=== PATIENT | male | born 1935 | race Caucasian/White ===

== ENCOUNTER 2018-05-17 21:37 | Inpatient (IN) | payer OTHER ==
--- NOTE | 2018-05-17 21:58 | EDPHY ---
H & P Stated Complaint: sHINGLES, SWELLING IN FACE Time Seen by Provider: 05/17/18 21:58 HPI/ROS: HPI CHIEF COMPLAINT: [ ] HISTORY OF PRESENT ILLNESS: [Need 4: Location, Duration, Severity, Quality, Context, Timing Modifying Factors, Associated S&S] Past Medical History: Past Surgical History: Social History: Family History: ROS REVIEW OF SYSTEMS: 10 Systems were reviewed and negative with the exception of the elements mentioned in the history of present illness. Exam Constitutional triage nursing summary reviewed, vital signs reviewed, awake/ alert. Eyes normal conjunctivae and sclera, EOMI, PERRLA. HENT normal inspection, atraumatic, moist mucus membranes, no epistaxis, neck supple/ no meningismus, no raccoon eyes. Respiratory clear to auscultation bilaterally, normal breath sounds, no respiratory distress, no wheezing. Cardiovascular rate normal, regular rhythm, no murmur, no edema, distal pulses normal. Gastrointestinal soft, non-tender, no rebound, no guarding, normal bowel sounds, no distension, no pulsatile mass. Genitourinary no CVA tenderness. Musculoskeletal no midline vertebral tenderness, full range of motion, no calf swelling, no tenderness of extremities, no meningismus, good pulses, neurovascularly intact. Skin pink, warm, & dry, no rash, skin atraumatic. Neurologic awake, alert and oriented x 3, AAOx3, moves all 4 extremities equally, motor intact, sensory intact, CN II-XII intact, normal cerebellar, normal vision, normal speech. Psychiatric normal mood/affect. Heme/Lymph/Immune no lymphadenopathy. Differential Diagnosis: Medical Decision Making: Re-evaluation: Source: Patient - Personal History Current Tetanus Diphtheria and Acellular Pertussis (TDAP): Yes - Medical/Surgical History Hx Asthma: No Hx Chronic Respiratory Disease: No Hx Diabetes: No Hx Cardiac Disease: No Hx Renal Disease: No Hx Cirrhosis: No Hx Alcoholism: No Hx HIV/AIDS: No Hx Splenectomy or Spleen Trauma: No Other PMH: htn/ kidney stones psoriasis spinal fx osteoporosis, SHINGLES - Social History Smoking Status: Never smoked Constitutional: Initial Vital Signs Temperature (C) 37.1 C 05/17/18 21:44 Heart Rate 125 H 05/17/18 21:44 Respiratory Rate 20 05/17/18 21:44 Blood Pressure 93/75 L 05/17/18 21:44 O2 Sat (%) 93 05/17/18 21:44 O2 Delivery Mode Room Air Allergies/Adverse Reactions: No Known Allergies Allergy (Unverified 05/17/18 21:44) Home Medications: Medication Instructions Recorded Amlodipine Besylate 05/16/18 Cephalexin [Keflex] 500 mg PO TID #21 cap 05/16/18 Valacyclovir HCl [Valtrex] 1,000 mg PO TID #21 tab 05/16/18 oxyCODONE/APAP 5/325 [Percocet 1 tab PO Q4H PRN #20 tab 05/16/18 5/325 (*)] Departure - Departure Referrals: Fiorella Navarrete, [facility] [Primary Care Provider] - As per Instructions
[2018-05-17] MEDS ORDERED: FLUORESCEIN SODIUM 1 MG STRIP OP ONE (22:12)
[2018-05-17] MEDS ORDERED: PROPARACAINE/FLUORESCEIN SOD 5 ML OPHT.BTL ONE (22:13)
[2018-05-17] MEDS ORDERED: methylPREDNISolone SOD SUCC 125 MG/2 ML VIAL IVP ONE (22:14)
[2018-05-17] MEDS ORDERED: HYDROmorphONE/DILAUDID 2 MG/ML INJ IVP ONE (22:14)
--- NOTE | 2018-05-17 22:24 | EDPHY ---
H & P Stated Complaint: sHINGLES, SWELLING IN FACE Time Seen by Provider: 05/17/18 21:58 HPI/ROS: CHIEF COMPLAINT: Shingles HISTORY OF PRESENT ILLNESS: Patient is an 83-year-old man who lives alone who comes back to the ER by ambulance complaining of pain in his face and swelling. He was seen here yesterday and was diagnosed with shingles. It covers his scalp and all 3 dermatomes of the 5th cranial nerve. It is unilateral. No involvement to the tip of his nose or ear or eye. He was started on valacyclovir and Percocet yesterday as well as Keflex for super infection. Today he followed up with his java tech lead who confirmed that it was shingles. Later this evening he and his son called the java tech lead back complaining of increased swelling around his eye and they recommended he come to the ER. No fevers. No nausea vomiting. Son states that he is concerned about the patient's ability to manage his pain and care for himself on at home. [place] and is concerned about taking his father that far away. Severity: Severe Modifying factors: None REVIEW OF SYSTEMS: Constitutional: denies: chills, fever, recent illness, recent injury EENTM: denies: blurred vision, double vision, nose congestion Respiratory: denies: cough, shortness of breath Cardiac: denies: chest pain, irregular heart rate, lightheadedness, palpitations Gastrointestinal/Abdominal: denies: abdominal pain, diarrhea, nausea, vomiting, blood streaked stools Genitourinary: denies: dysuria, frequency, hematuria, pain Musculoskeletal: denies: joint pain, muscle pain Skin: See HPI Neurological: denies: headache, numbness, paresthesia, tingling, dizziness, weakness Hematologic/Lymphatic: denies: blood clots, easy bleeding, easy bruising Immunologic/allergic: denies: HIV/AIDS, transplant 10 systems reviewed and negative except as noted EXAM: GENERAL: Well-appearing, well-nourished and in no acute distress. HEAD: Atraumatic, normocephalic. EYES: Pupils equal round and reactive to light, extraocular movements intact, sclera anicteric, conjunctiva are normal. Cornea stained with fluorescein, no dendritic lesions visible. ENT: Some involvement to the side of his nose but not to the tip of his nose. TMs normal, nares patent, oropharynx clear without exudates. Moist mucous membranes. He does have lesions on his year but not in the ear canal or tympanic membrane. NECK: Normal range of motion, supple without lymphadenopathy or JVD. LUNGS: Breath sounds clear to auscultation bilaterally and equal. No wheezes rales or rhonchi. HEART: Regular rate and rhythm without murmurs, rubs or gallops. ABDOMEN: Soft, nontender, normoactive bowel sounds. No guarding, no rebound. No masses appreciated. BACK: No CVA tenderness, no spinal tenderness, step-offs or deformities EXTREMITIES: Normal range of motion, no pitting or edema. No clubbing or cyanosis. NEUROLOGICAL: Cranial nerves II through XII grossly intact. Normal speech, normal gait. 5/5 strength, normal movement in all extremities, normal sensation , normal reflexes PSYCH: Normal mood, normal affect. SKIN: Significant lesions, vesicles an apparent superinfection as well as edema to the V1 V2 and V3 dermatomes as well as appears to be the C2 dermatome. Source: Patient Exam Limitations: No limitations - Personal History Current Tetanus Diphtheria and Acellular Pertussis (TDAP): Yes - Medical/Surgical History Hx Asthma: No Hx Chronic Respiratory Disease: No Hx Diabetes: No Hx Cardiac Disease: No Hx Renal Disease: No Hx Cirrhosis: No Hx Alcoholism: No Hx HIV/AIDS: No Hx Splenectomy or Spleen Trauma: No Other PMH: htn/ kidney stones psoriasis spinal fx osteoporosis, SHINGLES - Family History Significant Family History: No pertinent family hx - Social History Smoking Status: Never smoked Alcohol Use: Sober Drug Use: None Constitutional: Initial Vital Signs Temperature (C) 37.1 C 05/17/18 21:44 Heart Rate 125 H 05/17/18 21:44 Respiratory Rate 20 05/17/18 21:44 Blood Pressure 93/75 L 05/17/18 21:44 O2 Sat (%) 93 05/17/18 21:44 O2 Delivery Mode Room Air Allergies/Adverse Reactions: No Known Allergies Allergy (Unverified 05/17/18 21:44) Home Medications: Medication Instructions Recorded Amlodipine Besylate 05/16/18 Cephalexin [Keflex] 500 mg PO TID #21 cap 05/16/18 Valacyclovir HCl [Valtrex] 1,000 mg PO TID #21 tab 05/16/18 oxyCODONE/APAP 5/325 [Percocet 0.5 tab PO Q4H PRN 05/18/18 5/325 (*)] Medical Decision Making ED Course/Re-evaluation: Patient has a rather severe shingles outbreak to his 5th facial nerve and upper cervical dermatomes. He is on valacyclovir. I will add steroids. He has an empty stomach so I will give IV. I will also add IV pain control. I have spoke with Dr. Crow who will admit for pain control and possibly placement to rehab. Differential Diagnosis: Partial list of the Differential diagnosis considered include but were not limited to; shingles, cellulitis, ocular shingles and although unlikely based on the history and physical exam, I also considered encephalitis, burn. - Data Points Medications Given: Acetaminophen (Tylenol) 650 mg PO Q4HRS PRN PRN Reason: Pain, Mild/Fever, Can Take PO Stop: 11/13/18 23:23 Last Admin: 05/18/18 08:21 Dose: 650 mg Diphenhydramine HCl (Benadryl) 25 mg PO Q6HRS PRN PRN Reason: Itching Stop: 11/14/18 10:37 Last Admin: 05/18/18 11:46 Dose: 25 mg Finasteride (Proscar) 5 mg PO DAILY YORDAN Stop: 11/14/18 11:29 Last Admin: 05/18/18 11:46 Dose: 5 mg Sodium Chloride (Ns) 1,000 mls @ 100 mls/hr IV CONT YORDAN Stop: 11/13/18 23:29 Last Admin: 05/18/18 00:19 Dose: 1,000 mls Tamsulosin HCl (Flomax) 0.4 mg PO DAILY YORDAN Stop: 11/14/18 11:29 Last Admin: 05/18/18 11:46 Dose: 0.4 mg Discontinued Medications Cephalexin HCl (Keflex) 500 mg PO BID YORDAN PRN Reason: Protocol Stop: 06/17/18 08:59 Last Admin: 05/18/18 08:21 Dose: 500 mg Hydromorphone HCl (Dilaudid) 0.5 mg IVP EDNOW ONE Stop: 05/17/18 22:15 Last Admin: 05/17/18 22:28 Dose: 0.5 mg Acyclovir 630 mg/ Dextrose 112.6 mls @ 100 mls/hr IV Q8HRS [facility] Stop: 06/17/18 02:59 Last Admin: 05/18/18 07:41 Dose: Not Given Methylprednisolone Sodium Succinate (Solu-Medrol) 125 mg IVP EDNOW ONE Stop: 05/17/18 22:15 Last Admin: 05/17/18 22:28 Dose: 125 mg Methylprednisolone Sodium Succinate (Solu-Medrol) 60 mg IVP DAILY [facility] Stop: 11/14/18 08:59 Last Admin: 05/18/18 08:21 Dose: 60 mg Departure - Departure Disposition: [facility] Acute Clinical Impression: Shingles outbreak Qualifiers: Herpes zoster complications: with other complications Qualified Code(s): B02.8 - Zoster with other complications Condition: Fair
[2018-05-17] MEDS ORDERED: ONDANSETRON 4 MG/2 ML VIAL IVP PRN (23:24)
[2018-05-17] MEDS ORDERED: ONDANSETRON DISINTEGRATING 4 MG TAB PO PRN (23:24)
[2018-05-18] MEDS: NS 1,000 ML IV SCH ×2 (00:19→13:55)
--- NOTE | 2018-05-18 03:47 | PDGENHP ---
History and Physical - Chief Complaint Shingles on right face - History of Present Illness Source - Patient provides history is good historian. EMR reviewed and case discussed with accepting hospitalist. HPI-this is a pleasant 83-year-old gentleman with past medical history significant for HTN, kidney stones, psoriasis, vertebral fracture, osteoporosis who presents emergency department today with complaints of worsening right facial pain and swelling due to shingles. Patient reports symptoms started approximately 4 days ago. He was seen 2 days ago in the ED in with the diagnosis and started on antiviral therapy and a prescription for Keflex that did not get filled.. Patient subsequently had outpatient dermatology follow-up who also added on steroids. Patient reports that he has only had continued worsening symptoms including extension of his swelling over his right eyelid. He denies any ocular pain or visual changes. He denies any fevers chills or sweats. Patient reports that he has always cold. He denies any nausea vomiting no diarrhea no cough or shortness of breath. Patient with declined oral intake for the last several days. He has had increased debility and generalized weakness. Son is concerned that patient may require additional help as he currently lives alone on his own. History Information - Allergies/Home Medication List Allergies/Adverse Reactions: No Known Allergies Allergy (Unverified 05/17/18 21:44) Home Medications: Amlodipine Besylate 05/16/18 [Last Taken Unknown] I have personally reviewed and updated: family history, medical history, social history, surgical history - Past Medical History Additional medical history: shingles,. HTN. kidney stones. psoriasis. vertebral fracture. osteoporosis - Surgical History Additional surgical history: lithotripsy - Family History Additional family history: denies FHX CAD, DM, CVA - Social History Smoking Status: Never smoked Alcohol Use: None Drug Use: None Additional social history: Patient lives alone. COR - FULL Review of Systems Review of Systems: ROS: 10pt was reviewed & negative except for what was stated in HPI & below Constitutional: Reports: other (always feels cold). Denies: chills, fever EENMT: Reports: no symptoms Cardiac: Reports: no symptoms Respiratory: Reports: no symptoms Gastrointestinal: Reports: nausea. Denies: vomitting, abdominal pain, diarrhea Genitourinary: Reports: no symptoms Muscolosketal: Reports: no symptoms Skin: Reports: rash, other (pain in v1,2,3 distribution) Hematologic/Lymphatic: Reports: no symptoms Physical Exam Physical Exam: Selected Entries 05/17/18 21:44 Blood Pressure Automatic Method Heart Rate 125 H Respiratory 20 Rate O2 Sat (%) 93 Temperature (C) 37.1 C Blood Pressure 93/75 L Mean Arterial 81 Pressure (MAP) O2 Delivery Room Air Mode Temperature Oral Source Temp Pulse Resp BP Pulse Ox 36.8 C 102 H 18 132/78 H 95 05/17/18 23:29 05/17/18 23:29 05/17/18 23:29 05/17/18 23:29 05/17/18 23:29 O2 (L/minute) 2 Constitutional: no apparent distress, chronically ill appearing, uncomfortable, other (NAD. patient lays in bed awake. appears uncomfortable. ) Eyes: PERRL (decreased reactivity to light bilaterally but symmetric. ) Ears, Nose, Mouth, Throat: poor dentition, No moist mucous membranes (slightly tachy/dry) Cardiovascular: regular rate and rhythym, no murmur, rub, or gallop, edema ( trace) Peripheral Pulses: 2+: dorsalis-pedis (R), dorsalis-pedis (L) Respiratory: no respiratory distress, no rales or rhonchi, clear to auscultation , No respiratory distress Gastrointestinal: normoactive bowel sounds, soft, non-tender abdomen, no palpable masses, No distension Genitourinary: no bladder tenderness, No keys in urethra Skin: warm, rash (vesciular lesions right ear with surrounding erythema/edema. scabbed lesions lower face/chin/jaw right.) Musculoskeletal: generalized weakness, No joint tenderness, No pain with ROM Neurologic: AAOx3, sensation intact bilaterally, CN II-XII Intact, No weakness, No facial droop Psychiatric: interacting appropriately, not anxious, not encephalopathic, thought process linear, No poor insight, No poor judgement, No poor memory Lab Data & Imaging Review 05/18/18 04:14 05/18/18 04:14 Assessment & Plan Assessment: 83-year-old male with history of shingles to the right side of his face with complaints of intractable pain. Shingles outbreak (Acute) - patient noting some nausea upon arrival. had been placed on valcyclovir as outpatient. continue with acyclovir IV. Patient previously started on keflex for possible superimposed cellulitis. continue keflex as tolerated. Patien ton respiratory and contact precautions given open vesicles. No evidence of ocular involvement at this time. Acute pain 2/2 shingles - prn pain medications see med list. hyponatremia - suspect 2/2 hypovolemia. patient reports decreased oral intake x 4 days and appears dry. encourage po intake. supplemental IVF overnight. repeat bmp in AM. CKD stage 4 - appears to be baseline renal function benign essential HTN - BPs acceptable at this time. continue amlodipine when dosing can be verified. psoriasis - supportive care. FEN - IV as above. electrolyte monitoring and replacement prn. advance diet as tolerated. PPX - SCDs. heparin. COR - FULL. Dispo - Admit to observation status
[2018-05-18] MEDS: D5W IV SCH ×2 (04:10→07:41)
[2018-05-18] MEDS: ACYCLOVIR IV SCH ×2 (04:10→07:41)
[2018-05-18 04:20] LABS: PLATELET COUNT 186 10^3/uL (150-400)
[2018-05-18] MEDS: ACETAMINOPHEN 325 MG TAB PO PRN (08:21)
[2018-05-18] MEDS ORDERED: methylPREDNISolone SOD SUCC 125 MG/2 ML VIAL IVP SCH (09:00)
[2018-05-18] MEDS ORDERED: CEPHALEXIN 500 MG CAP PO SCH ×2 (09:00→16:00)
[2018-05-18] MEDS ORDERED: ENOXAPARIN 40 MG/0.4 ML SYR SC SCH (09:00)
--- NOTE | 2018-05-18 09:28 | ASMTCMCOM ---
CM Note CM Note Notes: Patient brought to ED by son in law for concerns over increasing facial swelling associated with active shingles. He has been admitted for aggressive treatment including steroids, IV antiviral and pain management. Per family they are concerned about his ability to live alone. CM to follow for needs. Plan: TBD Date Signed: 05/18/2018 09:27 AM Electronically Signed By:Lorena Gerardo RN
--- NOTE | 2018-05-18 09:38 | HOSPPROG ---
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 encephalopathy Subjective: Can't walk, oral intake improving though, no pain Objective: Vital Signs Temp Pulse Resp BP Pulse Ox 36.7 C 108 H 20 130/69 H 92 05/18/18 07:59 05/18/18 07:59 05/18/18 04:00 05/18/18 07:59 05/18/18 07:59 Laboratory Results 05/18/18 04:14 05/18/18 04:14 05/17/18 05/18/18 05/19/18 05:59 05:59 05:59 Output Total 250 Balance -250 Old chart reviewed, including Joy. No outpatient records. Has labs back in 2015 that shows creatine 3.0 suggest CKD - Physical Exam Constitutional: uncomfortable, unkempt Cardiovascular: tachycardia, No systolic murmur, No irregularly irregular, No edema Respiratory: no respiratory distress, no rales or rhonchi, clear to auscultation Gastrointestinal: normoactive bowel sounds, soft, non-tender abdomen, no palpable masses, other (possible bladder fullness) Skin: warm, no fluctuance, no induration, other (extensive shingles rash over face and right side of neck, crusting, surrouding erythema) Neurologic: AAOx3, sensation intact bilaterally Psychiatric: interacting appropriately, not anxious, not encephalopathic, thought process linear ICD10 Worksheet Patient Problems: Problems Problem Status Onset Shingles outbreak Acute
[2018-05-18] MEDS: FINASTERIDE 5 MG TAB PO SCH (11:46)
[2018-05-18] MEDS: TAMSULOSIN HCL 0.4 MG CAP PO SCH (11:46)
[2018-05-18] MEDS: diphenhydrAMINE 25 MG CAP PO PRN (11:46)
[2018-05-18] MEDS ORDERED: HEPARIN 5,000 UNIT/0.5 ML INJ SC SCH (14:00)
[2018-05-18] MEDS: DIPHENHYDRAMINE CREAM TP PRN (15:06)
[2018-05-18] MEDS ORDERED: HEPARIN 10,000 UNIT/10 ML MDV (1,000 UNIT/ML) IVP PRN (18:43)
[2018-05-18] MEDS ORDERED: HEPARIN/DEXTROSE 500 ML IV SCH (18:45)
[2018-05-18] MEDS ORDERED: DILTIAZEM 25 MG/5 ML VIAL IVP ONE ×2 (18:45→21:12)
--- NOTE | 2018-05-18 18:50 | HOSPPROG ---
Hospitalist Progress Note Assessment/Plan: Called by RN for new onset a-fib. Patient seen while eating - appears comfortable. Denies chest pain, SOB, edema. Denies history of any cardiac problems. Denies any history of bleeding problems including intracranial and GI. 132/82, HR 150s Conversant, eating dinner RRR, no MRG CTAB Impression: 1. New onset a-fib with RVR, CHADSVasc=3; BP normal currently 2. Shingles 3. Renal insufficiency Plan: 1. Transfer to PCU for tele monitoring 2. Dilt 5mg IV x 1, then dilt gtt 3. Trend troponins 4. Heparin gtt, no bolus 5. Echo tomorrow 35 mins CC time managing new onset a-fib with tachycardia Objective: Vital Signs Temp Pulse Resp BP Pulse Ox 36.4 C 88 18 133/74 H 92 05/18/18 11:59 05/18/18 16:00 05/18/18 11:59 05/18/18 11:59 05/18/18 16:00 Laboratory Results 05/18/18 04:14 05/18/18 04:14 05/17/18 05/18/18 05/19/18 05:59 05:59 05:59 Intake Total 500 Output Total 250 1100 Balance -250 -600 ICD10 Worksheet Patient Problems: Problems Problem Status Onset Shingles outbreak Acute
[2018-05-18 18:53] LABS: PLATELET COUNT 153 10^3/uL (150-400)
[2018-05-18 19:22] LABS: INR 1.16 (0.83-1.16)
[2018-05-18] MEDS: DILTIAZEM 125 MG in D5W 125 ML IV SCH (21:06)
[2018-05-18] MEDS: CEPHALEXIN 500 MG CAP PO SCH (21:19)
[2018-05-19] MEDS: DILTIAZEM 125 MG in D5W 125 ML IV SCH ×3 (05:37→23:24)
[2018-05-19] MEDS: D5W IV SCH (05:40)
[2018-05-19] MEDS: ACYCLOVIR IV SCH (05:40)
[2018-05-19 06:27] LABS: PLATELET COUNT 179 10^3/uL (150-400)
[2018-05-19] MEDS: FINASTERIDE 5 MG TAB PO SCH (08:46)
[2018-05-19] MEDS: CEPHALEXIN 500 MG CAP PO SCH (08:46)
[2018-05-19] MEDS: TAMSULOSIN HCL 0.4 MG CAP PO SCH (08:48)
[2018-05-19] MEDS ORDERED: predniSONE 20 MG TAB PO SCH (09:00)
[2018-05-19] MEDS: NS 1,000 ML IV SCH (09:21)
[2018-05-19] MEDS: DIPHENHYDRAMINE CREAM TP PRN ×2 (09:21→14:48)
[2018-05-19] MEDS ORDERED: LORazepam 0.5 MG TAB PO PRN (09:49)
[2018-05-19] MEDS ORDERED: OLANZapine 2.5 MG TAB PO PRN (09:50)
[2018-05-19] MEDS ORDERED: OLANZapine 2.5 MG TAB PO ONE (09:50)
--- NOTE | 2018-05-19 10:56 | ECHO ---
[email or web address] [address] [address] Main: [phone] Fax: Transthoracic Echocardiogram Name: CRISTOPHER MORENO MR#: [id number] Study Date: 05/19/2018 Study Time: 10:04 AM Date of : 1935 Age: 83 year(s) Height: 172.7 cm (68 in.) Weight: 63.5 kg (140 lb.) BSA: 1.76 m2 Gender: Male Examination: Echo Indication: a-fib Image Quality: Technically Difficult Contrast: Requested by: Benito Cooper BP: 90 mmHg/71 mmHg Heart Rate: Rhythm: Indication: a-fib Procedure Staff Clinical Assessment Manager: Vero Wright [facility] Reading Physician: Toan Middleton MD Requesting Provider: Conclusions: 1)Afib at 121bpm. 2)Normal LV size and systolic function with a LVEF of 63%. 3)Moderate concentric LVH noted. 4)Mild MR without MV prolapse. 5)Mild to moderate TR with estimated normal PA pressures. Measurements: Chambers Valvular Assessment AV/MV Valvular Assessment TV/PV Normal Normal Normal Name Value Range Name Value Range Name Value Range Ao Antonina (MM): 3.2 cm (2.2 cm-3.7 AV Vmax: 0.98 m/s (1 m/s-1.7 TR Vmax: 2.55 mm/s ( - ) cm) m/s) TR PGmax: 26 mmHg ( - ) IVSd (2D): 1.4 cm (0.6 cm-1.1 AV maxP mmHg ( - ) syst. PAP: 36 mmHg ( - ) cm) LVOT Vmax: 0.66 m/s (0.7 m/s-1.1 PV Vmax: 0.72 m/s (0.6 m/s-0.9 LVDd (2D): 3.1 cm (4.2 cm-5.9 m/s) m/s) cm) EHSAN (Vmax): 2.1 cm2 ( - ) PV PGmax: 2 mmHg ( - ) LVDs (2D): 2.3 cm (2.1 cm-4 MV E Vmax: 0.80 m/s ( - ) cm) LVPWd (2D): 1.1 cm (0.6 cm-1 cm) LVOTd 2.0 cm 2.0 cm mm LVEF (2D): 63 (>=54 %) Continued Measurements: Valvular Assessment TV/PV Name Value CVP (est.): 10 mmHg Patient: CRISTOPHER MORENO Study Date: 05/19/2018 Page 1 of 2 10:04 AM Additional Vessels Name Value Ao Ascendin.4 cm Findings: Left Ventricle: Normal size left ventricle. Mild concentric LV hypertrophy. Normal global systolic LV function. EF is 63 %. Cannot rule out wall motion abnormalities due to sub-optimal acoustical window. Unable to assess diastolic dysfunction. Right Ventricle: Grossly normal RV size and function. Left Atrium: Grossly normal LA size. Right Atrium: Grossly normal RA size. Mitral Valve: The mitral valve is normal in appearance and function. Mild mitral valve regurgitation is present. No mitral stenosis is present. Aortic Valve: The aortic valve is tri-leaflet and functions normally. Aortic sclerosis is present. No aortic valve stenosis is present. Tricuspid Valve: The tricuspid valve is normal in appearance and function. Mild to moderate tricuspid valve regurgitation. The pulmonary artery pressure is normal. Pulmonic Valve: Pulmonary valve not well visualized. Mild pulmonic valve regurgitation is noted. Aorta: Normal size aortic root measuring 3.2 cm. Normal size ascending aorta measuring 3.4 cm. IVC: The IVC is normal sized. There is less than 50% respiratory excursion. Pericardium: No pericardial effusion. (No Signature Object) Patient: CRISTOPHER MORENO Study Date: 05/19/2018 Page 2 of 2 10:04 AM [id number]
--- NOTE | 2018-05-19 11:29 | ASMTCMCOM ---
CM Note CM Note Notes: 05/19/2018 Case Management Note Met w/pt daughter Carolann (MDPOA) [phone] and [phone] (cell), Carolann's and pt daughter Cheryl Tidwell [phone] to discuss d/c needs. Pt lives at [facility] on [address] housing per family. Pt suffers from memory issues and lives independently in [place]. Provided senior blue book and [facility] Referrals to family. [facility] Case Management d/c poc: [facility] re[facility] Case Management to follow. Date Signed: 05/19/2018 11:28 AM Electronically Signed By:Marie Raygoza RN
--- NOTE | 2018-05-19 11:37 | CPEKG ---
Test Reason : OPEN Blood Pressure : / mmHG Vent. Rate : 172 BPM Atrial Rate : 178 BPM P-R Int : 116 ms QRS Dur : 098 ms QT Int : 301 ms P-R-T Axes : 270 108 -29 degrees QTc Int : 510 ms Atrial fibrillation with rapid V-rate Right axis deviation Repolarization abnormality, prob rate related Confirmed by Laquita Shelton ([id number]) on 05/19/2018 11:36:35 AM Referred By: Confirmed By:Laquita Shelton
--- NOTE | 2018-05-19 12:58 | GCON ---
CARDIOLOGY CONSULTATION DATE OF CONSULTATION: 05/19/2018 INDICATION FOR CONSULTATION: New onset of atrial fibrillation with rapid ventricular response. HISTORY OF PRESENT ILLNESS: Mr. Clayton is a pleasant 83-year-old gentleman with a past medical histo ry of hypertension, nephrolithiasis, psoriasis, history of vertebral fracture, and osteoporosis, who presented to the emergency department yesterday with worsening right facial pain with known recent hi story of shingles. He was seen in the ER 2 days prior and started on antiviral therapy and prescript ion for Keflex. He also was seen by outpatient Dermatology, who also started him on oral steroids. He was brought back to the emergency department by his family secondary to increased generalized weak ness. Last evening at approximately 6:45 p.m., he went into atrial fibrillation with rapid ventricular resp onse. He was seen by Dr. Cooper, who transferred him to the PCU for telemetry monitoring and was st arted on diltiazem drip as well as heparin drip without bolus. Mr. Clayton remains in suboptimally controlled atrial fibrillation with rapid ventricular response wit h a current heart rate of 130 beats per minute. His blood pressures have been on the low end of norm al range with previous readings of 111/82, 123/76, and most recently 90/71. Heart rate is as stated above 130, and atrial fibrillation. Mr. Clayton denies any previous history of atrial fibrillation. He has no known history of coronary d isease. He denies a history of sleep apnea. He has no history of alcohol use. No history of thyroi d disease. Of note, troponin last evening at 6:45 p.m. was 0.047, and has trended this morning to 0.175. He den ies complaints of chest pain, chest pressure, shortness of breath, or dyspnea. He denies any complai nts of PND, orthopnea, or lower extremity edema. He denies fevers, chills, sweats, nausea, or vomiti ng. He has no complaints of abdominal pain or flank pain. PAST MEDICAL HISTORY: As stated above. MEDICATIONS: Current medications include diltiazem drip at 15 mg/hour. He is on Rocephin 1 g IV elsie ly, acyclovir 630 mg q.24 hours, heparin drip. SOCIAL HISTORY: He lives alone at [facility]. He has children who live in the area, who are involv ed in his care. He is a lifelong nonsmoker. He does not drink alcohol. FAMILY HISTORY: No family history of atrial fibrillation or premature coronary artery disease. EXAM: VITAL SIGNS: Blood pressure is currently 90/71, heart rate of 130, in atrial fibrillation, ox ygen saturation 93% on 3 L nasal cannula, temperature 36.4. GENERAL: He is awake, alert, oriented, appropriate, in no apparent distress. NECK: There is no evidence of JVP. LUNGS: Clear to ausculta tion anteriorly. He does have evidence of healing blisters on the right side of his face and neck fr om shingles. CARDIAC: S1, S2. Irregularly, irregular. No murmurs, rubs, or gallops. ABDOMEN: So ft, nontender. EXTREMITIES: There is no evidence of cyanosis, clubbing or edema. Distal pulses are intact. DATA: Echocardiogram performed earlier today demonstrates normal left ventricular function with LVEF of 63%, moderate concentric LVH, mild MR without prolapse, and mild to moderate TR with normal pulmo nary artery pressures. Telemetry demonstrates atrial fibrillation with ongoing rapid ventricular response. Lab work: Sodium of 135, potassium 4.0, chloride 104, bicarb 18, BUN 56, creatinine 3, AST 47, ALT 4 7, troponin 0.047, trending to 0.175 at 6:00 a.m. this morning. White blood cell count 23.02, hemogl obin 14, hematocrit of 40, platelet count 179. IMPRESSION: 1. New onset atrial fibrillation with rapid ventricular response. 2. History of hypertension. 3. Mildly elevated troponin. 4. Shingles. 5. Generalized weakness. SUMMARY: Mr. Clayton presented with progressive fatigue in the setting of shingles outbreak. New ons et of atrial fibrillation with rapid ventricular response last evening. No previous history of atria l fibrillation. He can note an irregular heartbeat, but denies any complaints of chest pain, chest p ressure, shortness of breath, or dyspnea. No complaints of dizziness or lightheadedness or near sync ope. His troponins are mildly elevated, and I think this may be due to potential demand ischemia. He has no previous history of coronary disease. He will require further risk stratification once atrial fib rillation is better controlled. CHADS-VASc score of 3 based off age and history of hypertension. Remains on heparin drip. Recommend he continue heparin drip. Will reassess tomorrow. If he remains in suboptimally controlled atrial fibrillation with no room for further titration of beta florinda due to hypotension, would consider TE E guided cardioversion. Would recommend he remain n.p.o. after midnight. Would recommend checking T SH as well as serum magnesium. PLAN: 1. Add metoprolol tartrate 12.5 mg p.o. b.i.d. 2. Continue heparin drip. 3. Continue diltiazem drip at 50 mg/hour. 4. We will keep n.p.o. after midnight tonight. 5. We will consider ROSEMARY cardioversion tomorrow if patient remains in suboptimally controlled atrial fibrillation. 6. Will ultimately plan to switch patient to anticoagulation with Eliquis 2.5 mg p.o. b.i.d. 7. Patient will require further workup in the setting of mildly elevated troponin. In the absence o f chest pain, no indication for urgent left heart catheterization. /[id number]/MODL
[2018-05-19] MEDS: METOPROLOL TARTRATE 25 MG TAB PO SCH ×2 (12:59→20:49)
--- NOTE | 2018-05-19 15:27 | HOSPPROG ---
Hospitalist Progress Note Assessment/Plan: * Severe Herpes Zoster -IV acyclovir -stop steroids as swelling greatly improved and family concerned steroid increasing his agitation * Superimposed facial cellulitis, also possible UTI -IV ceftriaxone * Acute on chronic renal failure due to hypovolemia -at baseline creatinine 3.0 -needs outpatient nephrology follow-up * Urinary retention -initially large PVR but patient refused cath -Flomax/Proscar added -following bladder scans - last scan PVR 173ml * Toxic/metabolic encephalopathy - due to steroids/narcs/infection -according to family no confusion at baseline - this is all acute and his is off baseline * New onset afib -on IV dilt gtt + IV heparin -possible cardioversion in am if remains rapid afib * Troponin elevation -strain due to rapid afib -outpatient ischemic eval Subjective: very agitated and angry, confused, not baseline per family at bedside Objective: Vital Signs Temp Pulse Resp BP Pulse Ox 36.4 C 127 H 12 106/73 92 05/19/18 12:00 05/19/18 12:00 05/19/18 12:00 05/19/18 12:00 05/19/18 12:00 Laboratory Results 05/19/18 06:06 05/19/18 06:06 05/18/18 05/19/18 05/20/18 05:59 05:59 05:59 Intake Total 600 Output Total 250 1850 175 Balance -250 -1250 -175 PT 15.0 SEC (12.0-15.0) 05/18/18 18:55 INR 1.16 (0.83-1.16) 05/18/18 18:55 d/w Dr. Martin regarding cariology consultation tele reviewed - persistent rapid afib renal US - large PVR - Physical Exam Constitutional: no apparent distress, appears nourished, not in pain Cardiovascular: no murmur, rub, or gallop, irregularly irregular, tachycardia, No edema Gastrointestinal: normoactive bowel sounds, soft, non-tender abdomen, no palpable masses Skin: no rashes or abrasions, no fluctuance, no induration Neurologic: CN II-XII Intact, No weakness, No numbness Psychiatric: anxious, agitated, poor insight, poor judgement, No thought process linear ICD10 Worksheet Patient Problems: Problems Problem Status Onset Shingles outbreak Acute
--- NOTE | 2018-05-19 21:43 | PDMN ---
Medical Necessity Medical necessity: [facility] Systemic or Infectious condition: 83 yo w/ acute shingle outbreak, initially OBS but determined pt has severe herpes zoster w/ superimposed facial cellulitis. IV acyclovir, steroids and antibx started. Pt has persistent tachycardia, IVS to cont, pt very weak due to acute infection and dehydration, unable to ambulate, PT/OT ordered, pt is confused, unclear if dementia vs. encephalopathy. Change to IP status 05/18/18@0950 per MD order.
[2018-05-19] MEDS: HYDROmorphONE/DILAUDID 1 MG/ML INJ IVP PRN (23:23)
[2018-05-20] MEDS: HYDROmorphONE/DILAUDID 1 MG/ML INJ IVP PRN (05:29)
[2018-05-20] MEDS: D5W IV SCH (05:45)
[2018-05-20] MEDS: ACYCLOVIR IV SCH (05:45)
[2018-05-20 06:38] LABS: CREATINE KINASE 168 IU/L (0-224)
[2018-05-20] MEDS: FINASTERIDE 5 MG TAB PO SCH (08:30)
[2018-05-20] MEDS: METOPROLOL TARTRATE 25 MG TAB PO SCH ×3 (08:30→20:26)
[2018-05-20] MEDS: TAMSULOSIN HCL 0.4 MG CAP PO SCH (08:30)
[2018-05-20] MEDS: ACETAMINOPHEN 325 MG TAB PO PRN (08:35)
--- NOTE | 2018-05-20 11:30 | PDCARPN ---
Cardiology Progress Note Assessment/Plan: Assessment: 1. New onset of PAF (CHADS VASC of 3) 2. Mild troponin elevation peak of 0.175, now 0.099. Demand ischemia in setting of Afib with RVR. 3. Chronic renal insufficiency Plan: -Discontinue Diltiazem gtt -Discontinue heparin gtt -Increase Metoprolol Tartrate to 25 mg po bid -Recommend Eliquis 2.5 mg bid to start with PM dose today -Recommend out pt pharmacologic nuclear stress test in the setting of new afib and mild troponin elevation -Lipid profile for the morning 05/20/18 11:32 Subjective: Mr. Clayton admitted with generalized fatigue and shingles. He went into new onset PAF with RVR. He has converted back to NSR. Troponin peaked at 0.175 yesterday, has trended down steadily to 0.099 today. No chest pain. No sob. BNP 6790. No LE edema. BP stable. Reviewed/Discussed With: hospitalist Objective: Vital Signs (8 Hrs) Temp Pulse Resp BP Pulse Ox 05/20/18 10:42 36.2 C 93 18 128/70 H 90 L 05/20/18 08:00 36.3 C 94 18 127/83 H 90 L Intake/Output (24 Hrs) 05/19/18 05/20/18 05/21/18 05:59 05:59 05:59 Intake Total 600 3205.4 Output Total 1850 825 150 Balance -1250 2380.4 -150 Intake: Oral (ml) 600 513 IV Intake (ml) 50 IV Infused (ml) 2642.4 Acyclovir 630 mg In D5w 100 100 ml @ 100 mls/hr IV Q24H YORDAN Rx#:[id number] Diltiazem 125 mg In D5w 280 125 ml @ Per Protocol IV CONT YORDAN Rx#:[id number] Heparin/Dextrose 500 ml @ 312.4 Per Protocol IV CONT YORDAN Rx#:[id number] Ns 1,000 ml @ 100 mls/hr 1850 IV CONT YORDAN Rx#: [id number] cefTRIAXone 1 GM/DEXTROSE 100 50 ml @ 100 mls/hr IV DAILY YORDAN Rx#:[id number] Output: Urine (ml) 1850 825 150 Urinal 1850 825 150 Other: Weight 50.8 kg Intake Quantity Yes Yes Sufficient Output Comment Urinal used urinal after blader scan Number of Voids Urinal 1 1 1 Bladder Scan Volume (ml) Urinal 297 Post Void Residual Scan Volume (ml) Urinal 183 Result Diagrams: 05/20/18 05:48 05/20/18 05:48 Cardiac Labs: Cardiac Lab Results (72 Hrs) 05/20/18 05/19/18 05/19/18 05:48 18:46 12:30 Troponin I 0.099 H 0.134 H 0.169 H 05/19/18 05/18/18 06:06 18:45 Troponin I 0.175 H 0.047 H - Physical Exam Cardiovascular: regular rate and rhythm, no murmurs, no rubs, no gallops, other (NO LE edema ) Respiratory: clear to auscultate bilat Neurologic: AAOx3, CN II-XII grossly intact Psychiatric: cooperative, interactive, following commands ICD10 Worksheet Patient Problems: Problems Problem Status Onset Shingles outbreak Acute
--- NOTE | 2018-05-20 14:51 | HOSPPROG ---
Hospitalist Progress Note Assessment/Plan: * Severe Herpes Zoster -IV acyclovir -stop steroids as swelling greatly improved and family concerned steroid increasing his agitation * Superimposed facial cellulitis -IV ceftriaxone * Acute on chronic renal failure due to hypovolemia -at baseline creatinine 3.0 -needs outpatient nephrology follow-up * Urinary retention -initially large PVR but patient refused cath -Flomax/Proscar added -following bladder scans -appropriate uop reported this morning * Toxic/metabolic encephalopathy - due to steroids/narcs/infection -according to family no confusion at baseline - this is all acute and his is off baseline * New onset afib, now converted back to NSR -Cards increased Metoprolol -stop Cardizem drip -stop Heparin -Start Eliquis tonight -will need op stress test * Troponin elevation -strain due to rapid afib -outpatient ischemic eval * Steroid induced Leukocytosis Subjective: cognitions and agitation better this morning. Pleaseant. no cp or sob. Objective: Vital Signs Temp Pulse Resp BP Pulse Ox 36.2 C 93 18 128/70 H 90 L 05/20/18 10:42 05/20/18 10:42 05/20/18 10:42 05/20/18 10:42 05/20/18 10:42 Microbiology 05/18/18 12:42 Urine Culture - Final Urine,Clean Catch Laboratory Results 05/20/18 05:48 05/20/18 05:48 05/19/18 05/20/18 05/21/18 05:59 05:59 05:59 Intake Total 600 3205.4 Output Total 1850 825 150 Balance -1250 2380.4 -150 PT 15.0 SEC (12.0-15.0) 05/18/18 18:55 INR 1.16 (0.83-1.16) 05/18/18 18:55 - Physical Exam Constitutional: chronically ill appearing Eyes: PERRL Ears, Nose, Mouth, Throat: moist mucous membranes, hearing normal, ears appear normal Cardiovascular: regular rate and rhythym Respiratory: no respiratory distress Gastrointestinal: normoactive bowel sounds, soft, non-tender abdomen Skin: warm Neurologic: AAOx3 Psychiatric: interacting appropriately, not anxious, not encephalopathic Lymph, Heme, Immunologic: No petechiae ICD10 Worksheet Patient Problems: Problems Problem Status Onset Shingles outbreak Acute
[2018-05-20] MEDS: HYDROCODONE/APAP 5/325 TAB PO PRN ×2 (16:41→17:44)
[2018-05-20] MEDS: APIXABAN 2.5 MG TAB PO SCH (20:27)
[2018-05-20] MEDS: diphenhydrAMINE 25 MG CAP PO PRN (20:27)
[2018-05-21 03:55] LABS: PLATELET COUNT 180 10^3/uL (150-400)
[2018-05-21] MEDS: D5W IV SCH (04:20)
[2018-05-21] MEDS: ACYCLOVIR IV SCH (04:20)
[2018-05-21] MEDS: METOPROLOL TARTRATE 25 MG TAB PO SCH ×2 (06:22→21:01)
[2018-05-21] MEDS: TAMSULOSIN HCL 0.4 MG CAP PO SCH (09:17)
[2018-05-21] MEDS: diphenhydrAMINE 25 MG CAP PO PRN ×2 (09:17→21:10)
[2018-05-21] MEDS: FINASTERIDE 5 MG TAB PO SCH (09:17)
[2018-05-21] MEDS: APIXABAN 2.5 MG TAB PO SCH ×2 (09:18→21:01)
[2018-05-21] MEDS: HYDROCODONE/APAP 5/325 TAB PO PRN (09:18)
[2018-05-21] MEDS ORDERED: DILTIAZEM 125 MG in D5W 125 ML IV SCH (10:00)
[2018-05-21] MEDS ORDERED: METOPROLOL TARTRATE 25 MG TAB PO ONE (10:44)
--- NOTE | 2018-05-21 11:26 | ASMTCMCOM ---
CM Note CM Note Notes: 05/21/2018 Case Management Note Discussed pt during rounds this morning. Anticipating d/c Tuesday. [facility] Case Management d/c poc: [facility] rehab Case Management to follow. Date Signed: 05/21/2018 11:25 AM Electronically Signed By:Marie aRygoza RN
--- NOTE | 2018-05-21 11:39 | HOSPPROG ---
Hospitalist Progress Note Assessment/Plan: * Severe Herpes Zoster -IV acyclovir -stop steroids as swelling greatly improved and family concerned steroid increasing his agitation * Superimposed facial cellulitis -IV ceftriaxone * Acute on chronic renal failure due to hypovolemia -at baseline creatinine 3.0 -needs outpatient nephrology follow-up * Urinary retention -initially large PVR but patient refused cath -Flomax/Proscar added -following bladder scans -appropriate uop reported this morning * Toxic/metabolic encephalopathy - due to steroids/narcs/infection -according to family no confusion at baseline - this is all acute and his is off baseline * New onset afib, now converted back to NSR -Metoprolol -stop Heparin -Eliquis -will need op stress test -TTE c/w LVEF 63%, LVH, mod TR * Troponin elevation -strain due to rapid afib -outpatient ischemic eval * Steroid induced Leukocytosis: improving Plan: Overall he is doing better. He did go back into AFib this morning and after d/w Dr. Martin his Metoprol will be increased to 50mg BID. He will cont Eliquis. He needs an OP stress test and this can be arranged on f/u His agitation is better. Cognition is likely back to baseline. He did not require Zyprexa yesterday Cont IV Acyclovir today but can change to PO on discharge. Would treat with Rocephin and change to oral on d/c. Cr is stable and chronically elevated He is no longer having any urinary retention issues. Cont with Flomax and Proscar He is still hypoxic at 4 Liters. He reports no baseline requirement but was on 2L on admission. CXR does show mild pulm venous congestion. Will do a trial of Lasix today. He has been accepted to [facility] and he can likely discharge on 05/22 if stable , HR better Subjective: went back into Afib this morning. Frustrated with still being in the hospital. Cognition is better. Objective: Vital Signs Temp Pulse Resp BP Pulse Ox 36.2 C 112 H 18 104/55 L 93 05/21/18 07:59 05/21/18 10:21 05/21/18 07:59 05/21/18 10:51 05/21/18 07:59 Microbiology 05/18/18 12:42 Urine Culture - Final Urine,Clean Catch Laboratory Results 05/21/18 03:06 05/21/18 03:06 05/20/18 05/21/18 05/22/18 05:59 05:59 05:59 Intake Total 3205.4 1000 150 Output Total 825 1065 Balance 2380.4 -65 150 PT 15.0 SEC (12.0-15.0) 05/18/18 18:55 INR 1.16 (0.83-1.16) 05/18/18 18:55 - Physical Exam Constitutional: chronically ill appearing Eyes: PERRL Ears, Nose, Mouth, Throat: moist mucous membranes, hearing normal Cardiovascular: regular rate and rhythym, No edema Respiratory: no respiratory distress, no rales or rhonchi, reduced air movement Gastrointestinal: normoactive bowel sounds, soft, non-tender abdomen Skin: warm Neurologic: AAOx3 Psychiatric: interacting appropriately, not anxious, not encephalopathic Lymph, Heme, Immunologic: No petechiae ICD10 Worksheet Patient Problems: Problems Problem Status Onset Shingles outbreak Acute
[2018-05-21] MEDS ORDERED: FUROSEMIDE 20 MG TAB PO ONE (11:41)
--- NOTE | 2018-05-21 11:59 | PDCARPN ---
Cardiology Progress Note Assessment/Plan: Assessment: 1. New onset of PAF (CHADS VASC of 3) 2. Mild troponin elevation peak of 0.175, now 0.099. Demand ischemia in setting of Afib with RVR. 3. Chronic renal insufficiency Plan: -Increase Metoprolol Tartrate to 50 mg po bid -Continue Eliquis 2.5 mg bid -Recommend out pt pharmacologic nuclear stress test in the setting of new afib and mild troponin elevation -Will follow 05/21/18 11:59 Subjective: Mr. Clayton is feeling better this am. He did return to afib, rates in the 120s. Asymptomatic. Reviewed/Discussed With: family, hospitalist Time Spent with Patient: greater than 25 minutes Time Spent with Patient: Greater than 25 minutes spent on this patients care, greater than 50% of time spent counseling, educating, and coordinating care regarding the above mentioned plan. Objective: Vital Signs (8 Hrs) Temp Pulse Resp BP Pulse Ox 05/21/18 10:51 104/55 L 05/21/18 10:22 115/61 05/21/18 10:21 112 H 05/21/18 07:59 36.2 C 135 H 18 137/98 H 93 05/21/18 06:22 125 H 122/77 H Intake/Output (24 Hrs) 05/20/18 05/21/18 05/22/18 05:59 05:59 05:59 Intake Total 3205.4 1000 150 Output Total 825 1065 Balance 2380.4 -65 150 Intake: Oral (ml) 513 1000 IV Intake (ml) 50 50 IV Infused (ml) 2642.4 100 Acyclovir 630 mg In D5w 100 100 100 ml @ 100 mls/hr IV Q24H Y[facility]AN Rx#:[id number] Diltiazem 125 mg In D5w 280 125 ml @ Per Protocol IV CONT YORDAN Rx#:[id number] Heparin/Dextrose 500 ml @ 312.4 Per Protocol IV CONT YORDAN Rx#:[id number] Ns 1,000 ml @ 100 mls/hr 1850 IV CONT YORDAN Rx#: [id number] cefTRIAXone 1 GM/DEXTROSE 100 50 ml @ 100 mls/hr IV DAILY YORDAN Rx#:[id number] Output: Urine (ml) 825 1065 Urinal 825 1065 Other: Intake Quantity Yes Sufficient Output Comment Urinal used urinal after blader scan Number of Voids Toilet 1 Urinal 1 1 Bladder Scan Volume (ml) Urinal 297 320 Post Void Residual Scan Volume (ml) Urinal 183 210 Result Diagrams: 05/21/18 03:06 05/21/18 03:06 Cardiac Labs: Cardiac Lab Results (72 Hrs) 05/20/18 05/19/18 05/19/18 05:48 18:46 12:30 Troponin I 0.099 H 0.134 H 0.169 H 05/19/18 05/18/18 06:06 18:45 Troponin I 0.175 H 0.047 H ICD10 Worksheet Patient Problems: Problems Problem Status Onset Shingles outbreak Acute
[2018-05-21] MEDS ORDERED: BISACODYL 10 MG SUPP PR PRN (17:20)
[2018-05-21] MEDS ORDERED: LACTULOSE 20 GM/30 ML UDCUP PO PRN (17:20)
[2018-05-21] MEDS ORDERED: POLYETHYLENE GLYCOL 3350 17 GM PKT PO PRN (17:20)
[2018-05-21] MEDS: DIPHENHYDRAMINE CREAM TP PRN (18:47)
[2018-05-21] MEDS: SENNOSIDES/DOCUSATE SODIUM TAB PO SCH (22:40)
[2018-05-22] MEDS: HYDROCODONE/APAP 5/325 TAB PO PRN ×3 (03:11→18:13)
[2018-05-22] MEDS: D5W IV SCH (03:22)
[2018-05-22] MEDS: ACYCLOVIR IV SCH (03:22)
[2018-05-22] MEDS: SENNOSIDES/DOCUSATE SODIUM TAB PO SCH ×2 (08:20→21:21)
[2018-05-22] MEDS: METOPROLOL TARTRATE 25 MG TAB PO SCH ×2 (08:20→21:21)
[2018-05-22] MEDS: TAMSULOSIN HCL 0.4 MG CAP PO SCH (08:21)
[2018-05-22] MEDS: FINASTERIDE 5 MG TAB PO SCH (08:21)
[2018-05-22] MEDS: APIXABAN 2.5 MG TAB PO SCH ×2 (08:21→21:20)
--- NOTE | 2018-05-22 08:45 | HOSPPROG ---
Hospitalist Progress Note Assessment/Plan: DIAGNOSES: * AFib with rapid ventricular rate, rate still uncontrolled on 50 twice daily metoprolol (new onset) -on anticoagulation -needs better rate control, may need to be held in sinus rhythm * Demand ischemia with mild troponin elevation * Acute 5th nerve shingles on right -still with pain, not on any neuropathic pain medications * Acute facial cellulitis * Acute encephalopathy improved, but is receiving narcotic, benzodiazepine, and other sedating drugs at this time * Acute on chronic renal failure improved to baseline+ * Acute urine retention appears resolved pt still w shingles pain being treated now w narcotic. He has been encephalopathic. Change meds for pain due to ineffectiveness of narcotic for this and need to stop sedation meds as able PLANS: * increase metoprolol to 75 bid * review w cardiology, ? antiarrythmic, cardioversion * stop sedating drugs including narcotics as able * start neurontin * does not need airborne isolation, only contact * continue PT OT * continue anticoag * recheck wbc and renal fxn in am * Will need outpatient stress testing I reviewed today with Dr. Markus Martin of Cardiology Seen on hospitalist rounds and multidisciplinary rounds SUBJECTIVE: Patient still feels weak and tired Still some pain from his shingles not really getting better No angina symptoms no shortness of breath Eating OBJECTIVE Vitals reviewed: Very tachycardic today pulse in 150-170 range irregular, blood pressure respirations all stable, no fever Security Support Analyst, my review: Rapid AFib returns again this morning running in the 150-170 range Exam: alert oriented , appears extremely weak and debilitated HEENT still showing the signs of his shingles which are beginning to crust over , cellulitis much better skin warm dry color ok resps not labored lungs clear BSs heart irregular and rapid abd soft nondistended nontender, bowel sounds present limbs warm, no edema iv site ok Lab data: INR 1.3 BUN and creatinine stable at his baseline, lytes okay, CO2 improved with decrease anion gap Objective: Vital Signs Temp Pulse Resp BP Pulse Ox 36.2 C 150 H 14 132/90 H 97 05/22/18 08:00 05/22/18 08:00 05/22/18 08:00 05/22/18 08:00 05/22/18 08:00 Laboratory Results 05/21/18 03:06 05/21/18 03:06 05/21/18 05/22/18 05/23/18 06:59 06:59 06:59 Intake Total 1150 600 Output Total 1065 1250 Balance 85 -650 PT 15.0 SEC (12.0-15.0) 05/18/18 18:55 INR 1.16 (0.83-1.16) 05/18/18 18:55 - Time Spent With Patient Time Spent with Patient: greater than 35 minutes Time Spent with Patient: Greater than 35 minutes spent on this patients care, greater than 50% of time spent counseling, educating, and coordinating care regarding the above mentioned plan. ICD10 Worksheet Patient Problems: Problems Problem Status Onset Shingles outbreak Acute
[2018-05-22] MEDS ORDERED: GABAPENTIN 100 MG CAP PO ONE (08:50)
--- NOTE | 2018-05-22 09:53 | PDCARPN ---
Cardiology Progress Note Chief Complaint: AF RVR in setting of shingles Assessment/Plan: Assessment: 83 y/o M with PMH htn, nephrolithiasis, psoriasis, osteoporosis, CKD with baseline Cr 3 based on chart review, who presented and was admitted due to recent shingles with lesions on face and neck and associated shingles. Found to be in AF 05/18 and started on Dilt gtt with heparin. Now on Eliquis and oral Metoprolol. Found to have elevated troponin that has trended down from 0.175 to 0.099 on last check. TSH wnl. NTproBNP 6790. Despite elevated NT-proBNP, pt does not appear hypervolemic. CXR unremarkable. Likely RVR is causing some DCHF. Echo from 05/19 shows normal LVEF 63%, mod concentric LVH, mild MR, mild-mod TR , no WMA. #. AF RVR: Metoprolol has needed titration now 75 BID on Eliquis 2.5 BID (renal dysfunction, weight, age all indicate need for lower dose regimen) rates still appear to be elevated up to 150 this AM will schedule ROSEMARY-guided CV #. htn: BP appears that it will tolerate increased dosing of Metoprolol #. CKD: baseline Cr 3 #. shingles: still noting discomfort Plan: - ROSEMARY-guided DCCV today with Dr. Maddox. 05/22/18 09:22 Subjective: Notes neck and facial throbbign pain. No cp, dyspnea, pnd/orthopnea, palpitations. Objective: Vital Signs (8 Hrs) Temp Pulse Resp BP Pulse Ox 05/22/18 08:00 97.2 F 150 H 14 132/90 H 97 05/22/18 03:50 97.6 F 89 15 136/81 H 97 Intake/Output (24 Hrs) 05/21/18 05/22/18 05/23/18 05:59 05:59 05:59 Intake Total 1000 750 Output Total 1065 1250 Balance -65 -500 Intake: Oral (ml) 1000 600 IV Intake (ml) 50 IV Infused (ml) 100 Acyclovir 630 mg In D5w 100 100 ml @ 100 mls/hr IV Q24H [facility] Rx#:[id number] Output: Urine (ml) 1065 1250 Toilet 500 Urinal 1065 750 Other: Output Comment Toilet per pt Number of Voids Incontinence 1 Toilet 1 1 Urinal 1 2 Number of Stools Toilet 1 1 Bladder Scan Volume (ml) Urinal 320 Post Void Residual Scan Volume (ml) Urinal 210 Result Diagrams: 05/21/18 03:06 05/21/18 03:06 Cardiac Labs: Cardiac Lab Results (72 Hrs) 05/20/18 05/19/18 05/19/18 05:48 18:46 12:30 Troponin I 0.099 H 0.134 H 0.169 H Telemetry: reviewed Echocardiogram: reviewed - Physical Exam Constitutional: no apparent distress, cachectic Eyes: anicteric sclera Cardiovascular: irregularly irregular, No no gallops, No systolic murmur, No jugular vein distention Respiratory: clear to auscultate bilat, no crackles Gastrointestinal: normoactive bowel sounds, no tenderness Skin: no edema, other (neck lesions seen/faced wrapped partially with Chip wrap) Musculoskeletal: no muscular tenderness Psychiatric: cooperative, interactive ICD10 Worksheet Patient Problems: Problems Problem Status Onset Shingles outbreak Acute
[2018-05-22] MEDS ORDERED: ATROPINE SULFATE 1 MG/10 ML SYR IVP ONE (09:54)
[2018-05-22] MEDS ORDERED: NS 1,000 ML IV ONE (09:54)
[2018-05-22] MEDS ORDERED: METOPROLOL TARTRATE 25 MG TAB PO ONE (11:09)
[2018-05-22 11:19] LABS: INR 1.34 (0.83-1.16); PROTIME(PATIENT) 16.8 SEC (12.0-15.0)
--- NOTE | 2018-05-22 13:44 | ASMTCMCOM ---
CM Note CM Note Notes: [facility] which cited need for need gor "negative pressure room". This is inaccurate pt is on "no contact" due to shingles. Information will be sent to [facility]. CM to follow. D/C Plan: [facility] Date Signed: 05/22/2018 01:43 PM Electronically Signed By:Steffany Rene
[2018-05-22] MEDS ORDERED: GABAPENTIN 300 MG CAP PO SCH (21:00)
[2018-05-22] MEDS: PREGABALIN 75 MG CAP PO SCH (21:20)
[2018-05-23] MEDS: D5W IV SCH (04:37)
[2018-05-23] MEDS: ACYCLOVIR IV SCH (04:37)
[2018-05-23 04:45] LABS: PLATELET COUNT 231 10^3/uL (150-400)
[2018-05-23] MEDS: METOPROLOL TARTRATE 50 MG TAB PO SCH ×2 (09:09→19:38)
[2018-05-23] MEDS: APIXABAN 2.5 MG TAB PO SCH ×2 (09:09→19:35)
[2018-05-23] MEDS: SENNOSIDES/DOCUSATE SODIUM TAB PO SCH ×2 (09:11→19:38)
[2018-05-23] MEDS: FINASTERIDE 5 MG TAB PO SCH (09:12)
[2018-05-23] MEDS: TAMSULOSIN HCL 0.4 MG CAP PO SCH (09:12)
--- NOTE | 2018-05-23 11:11 | HOSPPROG ---
Hospitalist Progress Note Assessment/Plan: DIAGNOSES: * AFib with rapid ventricular rate, has come and gone with spontaneous cardioversions, very rapid AFib when he is in it -on anticoagulation -metoprolol increased to 75 twice daily for better rate control -hopefully will remain in sinus rhythm as his infectious illnesses improve * Demand ischemia with mild troponin elevation -no further inpatient assessment required * Acute 5th nerve shingles on right -pain improving on Lyrica, getting by without narcotic * Acute facial cellulitis, appears resolved on antibiotic * Acute encephalopathy improved -sedating medicines discontinued -should continue improve as infectious * Acute on chronic renal failure improved to baseline * Acute urine retention appears resolved PLANS: * Continue increased metoprolol to 75 bid * Continue Eliquis * Continue current dose of Lyrica for neuropathic pain * continue PT OT * Will need outpatient stress testing Seen on hospitalist rounds and multidisciplinary rounds The likely to fpc facility 1-2 days if continues improvement SUBJECTIVE: Patient still feels weak and tired Shingles pain finally starting to get better today after starting Lyrica last night No angina symptoms no shortness of breath Eating OBJECTIVE Vitals reviewed: 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, my review: Spontaneously converted to sinus rhythm yesterday afternoon and has remained in sinus rhythm since Exam: alert oriented , appears extremely weak and debilitated HEENT still showing the signs of his shingles which are beginning to crust over , cellulitis much better skin warm dry color ok resps not labored lungs clear BSs heart irregular and rapid abd soft nondistended nontender, bowel sounds present limbs warm, no edema iv site ok Lab data: Some improvement in BUN and creatinine to 57/2.6 today [place] [address], stable hemoglobin and platelets Objective: Vital Signs Temp Pulse Resp BP Pulse Ox 37.0 C 111 H 18 140/87 H 98 05/23/18 07:17 05/23/18 09:09 05/23/18 07:17 05/23/18 07:17 05/23/18 07:17 Laboratory Results 05/23/18 03:38 05/23/18 03:38 05/22/18 05/23/18 05/24/18 06:59 06:59 06:59 Intake Total 600 1105 Output Total 1250 1070 Balance -650 35 PT 16.8 SEC (12.0-15.0) H 05/22/18 10:37 INR 1.34 (0.83-1.16) H 05/22/18 10:37 - Time Spent With Patient Time Spent with Patient: greater than 35 minutes Time Spent with Patient: Greater than 35 minutes spent on this patients care, greater than 50% of time spent counseling, educating, and coordinating care regarding the above mentioned plan. ICD10 Worksheet Patient Problems: Problems Problem Status Onset Shingles outbreak Acute
[2018-05-23] MEDS ORDERED: traMADol 50 MG TAB PO PRN (18:31)
[2018-05-23] MEDS: PREGABALIN 75 MG CAP PO SCH (19:36)
[2018-05-23] MEDS: traMADol 50 MG TAB PO PRN (19:36)
[2018-05-24] MEDS: D5W IV SCH (05:28)
[2018-05-24] MEDS: ACYCLOVIR IV SCH (05:28)
[2018-05-24] MEDS: APIXABAN 2.5 MG TAB PO SCH ×2 (08:41→19:18)
[2018-05-24] MEDS: TAMSULOSIN HCL 0.4 MG CAP PO SCH (08:41)
[2018-05-24] MEDS: SENNOSIDES/DOCUSATE SODIUM TAB PO SCH ×2 (08:42→19:18)
[2018-05-24] MEDS: FINASTERIDE 5 MG TAB PO SCH (08:43)
[2018-05-24] MEDS: METOPROLOL TARTRATE 50 MG TAB PO SCH ×2 (08:44→19:18)
[2018-05-24] MEDS: traMADol 50 MG TAB PO PRN ×2 (09:14→19:18)
--- NOTE | 2018-05-24 12:05 | HOSPPROG ---
Hospitalist Progress Note Assessment/Plan: 83 yo male with CRF admitted with Right Facial * Severe right facial Herpes Zoster, improving. -IV acyclovir. On d/c can change to PO Acyclovir. Will treat for 14 days -Lyrica for Pain. This will be increased today -was previously on steroids but this was stopped was Encephalopathy -Wound care to see today given secondary wounds * Superimposed facial cellulitis -IV ceftriaxone day 6/. Can likely stop tomorrow but will evaluate tomorrow * Acute on chronic renal failure due to hypovolemia -at baseline creatinine 3.0 -needs outpatient nephrology follow-up * Urinary retention: Resolved -initially large PVR but patient refused cath -cont with Flomax/Proscar added * Toxic/metabolic encephalopathy - due to steroids/narcs/infection: Resolved * New onset afib, Has been intermittently in Afib, now s/p cardioversion -Cont with Metoprolol 75mg BID -Cont Eliquis -will need f/u with Cardiology. May need op stress test -TTE c/w LVEF 63%, LVH, mod TR * Troponin elevation -Due to strain due to rapid afib -outpatient ischemic eval * Steroid induced Leukocytosis: Resolved * Acute Herpes Zoster related Pain: -Lyrica per above -Tramadol PRN, will increase dose today * Weakness and Deconditioning -will need SNF on D/C, likely [facility] -cont with PT/OT * Hypoxemia: Baseline is 2 L O2. -There is no e/o volume overload Dispo: Anticipate Discharge tomorrow. Will be kept tonight for pain management and pain med modification. Tramadol and Lyrica will be adjusted. Wound care to see. D/w nursing, pharmacy, CM on rounds at bedside. Subjective: no cp or sob. Pain is still an issue. afebrile Objective: Vital Signs Temp Pulse Resp BP Pulse Ox 36.6 C 96 16 156/80 H 92 05/24/18 07:49 05/24/18 07:49 05/24/18 07:49 05/24/18 07:49 05/24/18 07:49 Laboratory Results 05/23/18 03:38 05/23/18 03:38 05/23/18 05/24/18 05/25/18 05:59 05:59 05:59 Intake Total 1105 2150 Output Total 1070 1500 300 Balance 35 650 -300 PT 16.8 SEC (12.0-15.0) H 05/22/18 10:37 INR 1.34 (0.83-1.16) H 05/22/18 10:37 - Physical Exam Constitutional: chronically ill appearing Eyes: PERRL, EOMI Ears, Nose, Mouth, Throat: moist mucous membranes, hearing normal Cardiovascular: regular rate and rhythym, No edema Respiratory: no respiratory distress, no rales or rhonchi Gastrointestinal: normoactive bowel sounds, soft, non-tender abdomen Skin: warm, other (crusted lesions on right face and neck area. Some erythema under the dressing which was taken down. ) Musculoskeletal: generalized weakness Neurologic: AAOx3 Psychiatric: interacting appropriately, not anxious, not encephalopathic Lymph, Heme, Immunologic: No petechiae ICD10 Worksheet Patient Problems: Problems Problem Status Onset Shingles outbreak Acute
[2018-05-24] MEDS: PREGABALIN 50 MG CAP PO SCH ×2 (12:46→19:18)
--- NOTE | 2018-05-24 16:12 | ASMTCMCOM ---
CM Note CM Note Notes: 05/24/2018 Case Management Note Discussed pt during rounds this morning. [facility] Tuesday[facility] Case Management d/c poc: [facility] Case Management to follow. Date Signed: 05/24/2018 04:11 PM Electronically Signed By:Marie Raygoza RN
[2018-05-25] MEDS: D5W IV SCH (04:24)
[2018-05-25] MEDS: ACYCLOVIR IV SCH (04:24)
[2018-05-25] MEDS: traMADol 50 MG TAB PO PRN ×2 (05:02→13:40)
[2018-05-25] MEDS: PREGABALIN 50 MG CAP PO SCH (05:39)
[2018-05-25] MEDS: SENNOSIDES/DOCUSATE SODIUM TAB PO SCH (09:20)
[2018-05-25] MEDS: TAMSULOSIN HCL 0.4 MG CAP PO SCH (09:21)
[2018-05-25] MEDS: APIXABAN 2.5 MG TAB PO SCH (09:21)
[2018-05-25] MEDS: METOPROLOL TARTRATE 50 MG TAB PO SCH (09:22)
[2018-05-25] MEDS: FINASTERIDE 5 MG TAB PO SCH (09:22)
[2018-05-25 11:07] VITALS: BP 105/65
--- NOTE | 2018-05-25 12:50 | PDIAF ---
- Diagnosis Diagnosis: SHINGLES, DECONDITIONING Code Status: Full Code - Medication Management Discharge Medications: electronically signed and located in the Home Medication List. - Orders Isolation Type: Contact Isolation Diet Recommendation: no restrictions on diet Diet Texture: Regular Texture Diet, Thin Liquids, Meds Whole w/Liquids Additional Instructions: ACTIVITY: TOLERATED F/U: WITH PCP IN ONE WEEK - Follow Up Care Current Providers and Referrals: Fiorella Navarrete [employer]IMMING [employer]UTTER [employer]ACHINE [Primary Care Provider] - As per Instructions
--- NOTE | 2018-05-25 12:57 | PDDCSUM ---
Discharge Summary Discharge Summary: 83 yo male with CRF admitted with Right Facial cellulitis and Herpes Zoster. Treated accordingly per below. Hospitalization complicate by acute metabolic encephalopathy, Afib, and pain management. Now ready for d/c to [facility]. pain is better controlled. Cleared by Cardiology. DDX: * Severe right facial Herpes Zoster, improving. - treated with IV Acyclovir. Will change to PO Acyclovir, Renal dosed, x 7 more days -Lyrica for Pain -was previously on steroids but this was stopped due to Encephalopathy -Overall lesions are crusting over. No dressings needed. Leave to air. * Superimposed facial cellulitis: resolving -IV ceftriaxone, now changing to Keflex for 3 more days * Acute on chronic renal failure due to hypovolemia -at baseline creatinine 3.0 -needs outpatient nephrology follow-up * Urinary retention: Resolved -initially large PVR but patient refused cath -cont with Flomax/Proscar added * Toxic/metabolic encephalopathy - due to steroids/narcs/infection: Resolved * New onset afib, Has been intermittently in Afib, now s/p cardioversion -Cont with Metoprolol 75mg BID -Cont Eliquis -will need f/u with Cardiology. May need op stress test -TTE c/w LVEF 63%, LVH, mod TR * Troponin elevation -Due to strain due to rapid afib -outpatient ischemic eval * Steroid induced Leukocytosis: Resolved * Acute Herpes Zoster related Pain: -Lyrica per above -Tramadol PRN * Weakness and Deconditioning - [facility] -cont with PT/OT * Hypoxemia: resolved Exam: NAD AAOX3 RRR CTA B S/NT/ND CRUSTED LESIONS INVOLVING RIGHT NECK AND FACE Meds: see med rec f/u: 1)with PCP next week 2) with Cardiology 2-3 weeks 3)with Nephrology in 2-4 weeks total time spent on d/c is 45 mins.
--- NOTE | 2018-05-25 13:35 | WOCRNPDOC ---
WOCRN Advanced Assessment Note - Skin Integrity Problem, Advanced Assess Right Posterior Ear Lesions Dressing Type: Open to Air Exudate Amount: Scant Exudate Characteristic(s): Dried, Serosanguinous Adela Wound Tissue: Erythema, Hot, Non-blanching, Swollen, Crusted, Painful/ Tender Adela Wound Swelling: Mild Wound Bed Color: [place], Red Skin Integrity Problem Comment: Patient has multiple shingles partial thickness openings to posterior right ear and right occiputal region. Patient reports that entire area is painful and tender and that he feels nerve pain when wounds are touched. Patient's head had been wrapped to prevent scratching. No pressure injury noted upon assessment. Discussed patient plan of care wit Ambika AMOS. Patient will discharge to rehab facility. RN will recommend to MD to use calamine lotion PRN for pruritis outpatient. Patient on antiviral medication. Wound care will not follow.
--- NOTE | 2018-05-25 13:44 | ASDISCHSUM ---
Discharge Information Plan Status:SNF Medically Cleared to Leave:05/24/2018 Discharge Date:05/24/2018 CM D/C Disposition: ADT D/C Disposition:Care Home Facility Projected Discharge Date:05/25/2018 11:00 AM Transportation at D/C: Discharge Delay Reason: Follow-Up Date:05/25/2018 11:00 AM Discharge Slot: Final Diagnosis: Placement Information Referral Type:*Half-Way/SNF Referral ID:[id number] Provider Name:[facility] Address 1:[address] Address 2: City:[place] Selection Factors: State:[place] Patient Contact Information Contact Name:JULIOWILLARD Relationship:Daughter Address: Work Phone: City: [facility] Phone: [facility] Code: Email: Financial Information Financial Class:Medicare Primary Plan Desc:MEDICARE INPATIENT Primary Plan Number:[id number] Secondary Plan Desc: Secondary Plan Number: Assessment Information [facility] CM Progress Note CM Note CM Note Notes: Patient brought to ED by son in law for concerns over increasing facial swelling associated with active shingles. He has been admitted for aggressive treatment including steroids, IV antiviral and pain management. Per family they are concerned about his ability to live alone. CM to follow for needs. Plan: TBD Date Signed: 05/18/2018 09:27 AM Electronically Signed By:Lorena Gerardo RN LACE LACE Length of stay for Answers: 7-13 days current admission Acuity / Level of Answers: Yes Care: Did the patient have an inpatient admission? Comorbidities - select Answers: Other Notes: HTN all that apply # of Emergency department Answers: 1-2 visits in the last 6 months Score: 10 Date Signed: 05/25/2018 01:42 PM Electronically Signed By:MIGUEL Peguero [facility] CM Progress Note CM Note CM Note Notes: 05/19/2018 Case Management Note Met w/pt daughter Carolann ([employer]) [phone] and [phone] ([place]), Carolann's and pt daughter Cheryl Tidwell [phone] to discuss d/c needs. Pt lives at [facility] on [address] per family. Pt suffers from memory issues and lives independently in [place]. Provided senior blue book and [facility] Referrals to family. Family chose [facility]. Notified [facility] via Risk I/O. Case Management d/c poc: [facility] Case Management to follow. Date Signed: 05/19/2018 11:28 AM Electronically Signed By:Marie Raygoza RN [facility] CM Progress Note CM Note CM Note Notes: 05/21/2018 Case Management Note Discussed pt during rounds this morning. Anticipating d/c Tuesday[facility]c poc: [facility] Case Management to follow. Date Signed: 05/21/2018 11:25 AM Electronically Signed By:Marie Raygoza RN [facility] CM Progress Note CM Note CM Note Notes: Pt not ready today for d/c. [facility] called with concern over OT note which cited need for need gor "negative pressure room". This is inaccurate pt is on "no contact" due to shingles. [facility]. D/C Plan: [facility] Date Signed: 05/22/2018 01:43 PM Electronically Signed By:Steffany Rene [facility] CM Progress Note CM Note CM Note Notes: 05/24/2018 Case Management Note Discussed pt during rounds this morning. Anticipating d/c or Tuesday. Notified [facility] ready to accept. Case Management d/c poc: [facility] Case Management to follow. Date Signed: 05/24/2018 04:11 PM Electronically Signed By:Marie Raygoza RN Case Management Discharge Plan Note Case Management Discharge Discharge Order Complete? Answers: Yes Patient to Obtain Answers: Other Notes: [facility] Medications Transportation Arranged Answers: Other Notes: [facility] w/c transport Transport will Pick (Date 05/25/2018 02:00 PM & Time) ELVIRA Complete Answers: No Case Management Transport Answers: No Form Complete Faxed Final Orders Answers: Yes Agency/Facility Transfer Answers: Yes Report Printed & Faxed to Receiving Agency Family Notified Answers: No Discharge Comments Notes: Pts case discussed w/ DANDRE Apple and Dr. Mercer. Pt is being discharged today. Dc orders sent to [facility]. CM provided Ambika pettit/ phone number to call report. CM available for changes. Plan: [facility] Date Signed: 05/25/2018 01:42 PM Electronically Signed By:MIGUEL Peguero Intervention Information
== END 2018-05-25 13:56 | DRG 595 ==
LOC: F1N 23:09 → OBSVTOIN 05-18 09:27 → F2W 05-18 19:55
PROVIDERS: ADMIT Family Medicine; ATTEND Family Medicine
DX: B02.9 Zoster without complications (principal); L03.211 Cellulitis of face; I48.91 Unspecified atrial fibrillation; G92 Toxic encephalopathy; T38.0X5A Adverse effect of glucocorticoids and synthetic analogues, initial encounter; T40.605A Adverse effect of unspecified narcotics, initial encounter; N17.9 Acute kidney failure, unspecified; N18.9 Chronic kidney disease, unspecified; I24.8 Other forms of acute ischemic heart disease; R33.9 Retention of urine, unspecified; I10 Essential (primary) hypertension; L40.9 Psoriasis, unspecified; Z87.442 Personal history of urinary calculi
CPT/HCPCS: 85520-90; 92507-GN; 92523-GN; 92526-GN; 92610-GN; 96374; 97116-GP; 97161-GP; 97166-GO; 97530-GP; 97535-GO; G0378; G8978-GP-CL; G8979-GP-CI; G8987-GO-CK; G8988-GO-CI; G8996-GN-CJ; G8997-GN-CI; G8998-GN-CI; J0133; J0696; J1170; J1644; J2930; J7512